=== PATIENT | female | born 1970 ===

== ENCOUNTER 2021-12-11 10:32 | Emergency (ER) ==
[~2021-12-11] VITALS: Ht 160 cm; Wt 105.5 kg
[2021-12-11] MEDS ORDERED: IBUP200T46 PO (10:37)
== END 2021-12-11 13:14 | disposition left against medical advice (07) ==
LOC: M ED 10:32
DX: Z53.21 Procedure and treatment not carried out due to patient leaving prior to being seen by health care provider (principal)